=== PATIENT | female | born 1990 | race Caucasian/White ===

== ENCOUNTER → 2020-07-04 | Outpatient (CLI) | payer OTHER ==
[~2020-07-04] MED LIST: ADULT GLYCERIN1 EACH PR; BENTYL 20MG TAB20 MG PO; COLACE100 MG PO; DAILY VITE1 EACH PO; DICYCLOMINE HCL20 MG PO; OMNICEF 300 MG300 MG PO
== END ==
LOC: NM 10:00
DX: R11.2 Nausea with vomiting, unspecified (principal); K30 Functional dyspepsia
CPT/HCPCS: 78264; A9541

== ENCOUNTER → 2020-07-18 | Outpatient (CLI) | payer OTHER | LOC: KOH-I 06-20 11:30 | DX: J33.9 Nasal polyp, unspecified (principal); R43.8 Other disturbances of smell and taste; J32.0 Chronic maxillary sinusitis; J34.2 Deviated nasal septum | CPT/HCPCS: 70486 ==

== ENCOUNTER 2020-10-20 10:01 | Emergency (ER) | payer OTHER ==
[2020-10-20 12:16] LABS: RED BLOOD COUNT 4.4 M/UL (4.00-5.10); WHITE BLOOD COUNT 9.9 K/UL (4.5-11.0)
[2020-10-20 12:43] LABS: BUN/CREATININE RATIO 17 (0-10)
[2020-10-20] MEDS ORDERED: COLACE100 MG PO (13:20)
[2020-10-20] MEDS ORDERED: BENTYL 20MG TAB20 MG PO (13:20)
[2020-10-20] MEDS ORDERED: OMNICEF 300 MG300 MG PO (13:20)
[2020-10-20] MEDS ORDERED: ADULT GLYCERIN1 EACH PR (13:20)
== END 2020-10-20 14:10 | disposition home or self-care (01) ==
LOC: ER1 10:01
PROVIDERS: Physician Assistant Medical
DX: K59.00 Constipation, unspecified (principal); N39.0 Urinary tract infection, site not specified; F17.290 Nicotine dependence, other tobacco product, uncomplicated; Z90.49 Acquired absence of other specified parts of digestive tract; Z88.8 Allergy status to other drugs, medicaments and biological substances
CPT/HCPCS: 74018; 80053; 81001; 84703; 85025; 99284

== ENCOUNTER 2020-10-22 09:22 | Observation (INO) | payer OTHER ==
[~2020-10-22] VITALS: Ht 162.6 cm; Wt 65.8 kg
[~2020-10-22 09:22] MED LIST changes: -DAILY VITE1 EACH PO; -DICYCLOMINE HCL20 MG PO
[2020-10-22 11:24] LABS: HEMOGLOBIN 10.4 gm/dl (12.3-15.3)
[2020-10-22 11:27] LABS: RED BLOOD COUNT 3.8 M/UL (4.00-5.10); WHITE BLOOD COUNT 5.4 K/UL (4.5-11.0)
[2020-10-22 11:57] LABS: BUN/CREATININE RATIO 12 (0-10)
[2020-10-22] MEDS ORDERED: DICYCLOMINE HCL20 MG PO (16:25)
[2020-10-22] MEDS ORDERED: DAILY VITE1 EACH PO (16:31)
== END 2020-10-23 11:30 | disposition home or self-care (01) ==
LOC: ER1 09:22 → CDU 15:33 → M/S 15:33 → ER1 18:20 → M/S 20:07 → ER1 20:07 → M/S 10-23 11:30
PROVIDERS: Nurse Practitioner; ADMIT Obstetrics & Gynecology
DX: N83.8 Other noninflammatory disorders of ovary, fallopian tube and broad ligament (principal); K66.1 Hemoperitoneum; R11.2 Nausea with vomiting, unspecified; Z88.1 Allergy status to other antibiotic agents; Z90.49 Acquired absence of other specified parts of digestive tract; Z20.822 Contact with and (suspected) exposure to COVID-19
CPT/HCPCS: 76830; 80053; 80307; 81001; 83605; 83690; 84703; 85025; 86850; 86900; 86901; 93005; 96372; 96374; 96375; 99285; G0378; J0500; J0690; J1100; J1885; J2250; J2405; J2550; J2704; J2710; J3010; J7030; J7120; Q9967; U0002

== ENCOUNTER → 2021-08-31 | Outpatient (CLI) | payer OTHER ==
[~2021-08-31] MED LIST changes: +DAILY VITE1 EACH PO; +DICYCLOMINE HCL20 MG PO
== END ==
LOC: CT 07:55
DX: R10.13 Epigastric pain (principal)
CPT/HCPCS: Q9967

== ENCOUNTER → 2021-11-04 | Outpatient (CLI) | payer OTHER | LOC: HEART 5 11-03 14:00 | DX: R55 Syncope and collapse (principal); R00.0 Tachycardia, unspecified | CPT/HCPCS: 93306 ==

== ENCOUNTER → 2021-11-09 | Outpatient (CLI) | payer OTHER | LOC: LAB 15:01 | DX: R55 Syncope and collapse (principal); R00.0 Tachycardia, unspecified; Z20.822 Contact with and (suspected) exposure to COVID-19 | CPT/HCPCS: U0003 ==

== ENCOUNTER → 2021-11-12 | Outpatient (CLI) | payer OTHER | LOC: CATH 10:00 | DX: R55 Syncope and collapse (principal); R00.0 Tachycardia, unspecified ==